=== PATIENT | female | born 1940 | race Two or more races ===

== ENCOUNTER 2024-09-18 09:31 | Emergency (ER) | payer OTHER ==
[~2024-09-18] VITALS: Ht 167.6 cm; Wt 49.9 kg
[2024-09-18] MEDS ORDERED: ESCITALOPRA5 MG/5 ML (09:40)
[2024-09-18] MEDS ORDERED: ZESTRIL2.5 MG (09:41)
[2024-09-18] MEDS ORDERED: METHOTREXA25 MG/1 M5 (09:41)
[2024-09-18] MEDS ORDERED: ARED 2 (09:41)
[2024-09-18] MEDS ORDERED: FOLIC ACID0.4 MG (09:41)
[2024-09-18 11:14] LABS: HEMATOCRIT 42.8 % (36.0-45.00); HEMOGLOBIN 14.2 g/dL (12.0-15.00); MEAN CELL VOLUME 86.9 fL (80.00-100.00); MEAN CORPUSCULAR HEMOGLOBIN 28.9 pg (27.00-32.0); MEAN CORPUSCULAR HGB CONC 33.3 g/dl (32.0-36.0); PLATELET COUNT 232 K/uL (150-450); RED BLOOD COUNT 4.92 M/uL (4.00-6.00); RED CELL DISTRIBUTION WIDTH 15.7 % (11.5-14.5)
[2024-09-18 11:31] LABS: INR 1.03; PROTHROMBIN TIME 11.2 SECONDS (9.0-11.5)
[2024-09-18 11:32] LABS: BILIRUBIN TOTAL 0.96 mg/dL (0.3-1.2); CALCIUM 8.9 mg/dL (8.5-10.1); CREATININE SERUM 0.45 mg/dL (0.55-1.02); GFR 132.42; GLOBULINA 3.1 G/DL (2.4-3.5); POTASSIUM 4.04 mEq/L (3.5-5.1); TOTAL PROTEIN 6.1 gm/dL (6.4-8.2)
[2024-09-18 11:36] LABS: PARTIAL THROMBOPLASTIN TIME < 20.0 SECONDS (22.0-34.0)
[2024-09-18 13:40] LABS: URINE APPEARANCE Clear; URINE BACTERIA 1027.9 uL (0.0-1933); URINE BILIRRUBIN Negative (NEGATIVE); URINE BLOOD Negative; URINE COLOR Yellow; URINE EPITHELIAL CELLS 55.4 uL (0.0-38.8); URINE GLUCOSE Negative (NEGATIVE); URINE KETONE Negative (NEGATIVE); URINE LEUKOCYTE Moderate; URINE NITRATE Negative; URINE PROTEIN Negative (NEGATIVE); URINE RBC 17.6 uL (0.0-20.8); URINE WBC 73.1 uL (0.0-23.2)
[2024-09-18 14:41] LABS: URINE CAST 0.58 uL (0.0-1.40)
[2024-09-18 14:42] LABS: URINE YEAST FEW /hpf
[2024-09-19] MEDS ORDERED: AMOX-CLAV 875-1 EAC1 PO (14:42)
[2024-09-19] MEDS ORDERED: METHOTREXATE2.5 MG PO (14:42)
[2024-09-19] MEDS ORDERED: ESCITALOPRAM OXA5 MG PO (14:42)
[2024-09-19] MEDS ORDERED: PANTOPRAZOLE SO40 MG PO (14:42)
[2024-09-19] MEDS ORDERED: PREDNISOLO15 MG/5 M1 PO (14:42)
[2024-09-19] MEDS ORDERED: LISINOPRIL-HCT1 EAC2 PO (14:43)
== END 2024-09-18 15:20 | disposition home or self-care (01) ==
LOC: ER 09:31
PROVIDERS: General Practice
DX: R55 Syncope and collapse (principal); Z20.822 Contact with and (suspected) exposure to COVID-19

== ENCOUNTER → 2024-09-19 | Emergency (ER) | payer OTHER ==
[~2024-09-19] VITALS: Ht 167.6 cm; Wt 40.8 kg
[~2024-09-19] MED LIST: AMOX-CLAV 875-1 EAC1 PO; ARED 2; ESCITALOPRA5 MG/5 ML; ESCITALOPRAM OXA5 MG PO; FOLIC ACID0.4 MG; LISINOPRIL-HCT1 EAC2 PO; METHOTREXA25 MG/1 M5; METHOTREXATE2.5 MG PO; PANTOPRAZOLE SO40 MG PO; PREDNISOLO15 MG/5 M1 PO; ZESTRIL2.5 MG
== END | disposition home or self-care (01) ==
LOC: ER 14:16
DX: L03.116 Cellulitis of left lower limb (principal)

== ENCOUNTER 2024-09-20 22:05 | Emergency (ER) | payer OTHER ==
[~2024-09-20] VITALS: Ht 167.6 cm; Wt 54.4 kg
[2024-09-21 00:31] LABS: HEMOGLOBIN 13.7 g/dL (12.0-15.00); MEAN CELL VOLUME 88.3 fL (80.00-100.00); MEAN CORPUSCULAR HEMOGLOBIN 28.8 pg (27.00-32.0); MEAN CORPUSCULAR HGB CONC 32.6 g/dl (32.0-36.0); PLATELET COUNT 250 K/uL (150-450); RED BLOOD COUNT 4.76 M/uL (4.00-6.00); RED CELL DISTRIBUTION WIDTH 15.6 % (11.5-14.5)
[2024-09-21 00:58] LABS: ALBUMIN 2.8 gm/dL (3.4-5.0); BILIRUBIN TOTAL 0.62 mg/dL (0.3-1.2); CALCIUM 9.2 mg/dL (8.5-10.1); GFR 114.61; GLOBULINA 4.1 G/DL (2.4-3.5); POTASSIUM 4.92 mEq/L (3.5-5.1); TOTAL PROTEIN 6.9 gm/dL (6.4-8.2)
[2024-09-21 01:00] LABS: CREATININE SERUM 0.51 mg/dL (0.55-1.02)
== END 2024-09-21 02:51 | disposition home or self-care (01) ==
LOC: ER 22:05
PROVIDERS: General Practice
DX: S01.81XA Laceration without foreign body of other part of head, initial encounter (principal); W19.XXXA Unspecified fall, initial encounter; Y93.89 Activity, other specified; Y92.89 Other specified places as the place of occurrence of the external cause; Y99.8 Other external cause status